=== PATIENT | male | born 1970 | race Caucasian/White ===

== ENCOUNTER 2023-10-21 12:10 | Emergency (ER) | payer OTHER ==
[~2023-10-21] VITALS: Ht 172.7 cm; Wt 86.2 kg
[2023-10-21 12:14] VITALS: BP 139/90; PULSE 63; RESP 19; TEMP 97.8; O2SAT 97
[2023-10-21] MEDS: ONDANSETRON 4 MG/2 ML VIAL IVP ONE (13:09)
[2023-10-21] MEDS: MORPHINE SULFATE 4 MG/ML SYR IVP ONE (13:11)
[2023-10-21 14:34] LABS: BASOPHILS % (AUTO) 0.4 % (0.0-2.0); EOSINOPHILS # (AUTO) 0.1 K/uL (0-0.4); EOSINOPHILS % (AUTO) 1.4 % (0.0-4.0); HEMATOCRIT 40.3 % (36-52); HEMOGLOBIN 14.1 g/dL (12.0-18.0); LYMPHOCYTES # (AUTO) 2.2 K/uL (2.0-11.5); LYMPHOCYTES % (AUTO) 25.8 % (20.5-51.1); MEAN CORPUSCULAR HEMOGLOBIN 30 pg (27-31); MEAN CORPUSCULAR HGB CONC 35 g/dL (33-37); MONOCYTES # (AUTO) 0.6 K/uL (0.8-1.0); MONOCYTES % (AUTO) 7.6 % (1.7-9.3); NEUTROPHILS # (AUTO) 5.5 K/uL (1.8-7.7); NEUTROPHILS % (AUTO) 64.8 % (42.2-75.2); PLATELET COUNT (AUTO) 229 K/uL (140-450); RED BLOOD CELL COUNT(AUTO) 4.68 MIL/uL (4.20-6.10); RED CELL DISTRIBUTION WIDTH 13.9 % (11.6-13.7); WHITE BLOOD COUNT (AUTO) 8.5 K/uL (4.8-10.8)
[2023-10-21 14:58] LABS: ALBUMIN 3.5 g/dL (3.4-5.0); ANION GAP 11.3 (8-16); CALCIUM 8.7 mg/dL (8.5-10.1); CARBON DIOXIDE 31.8 mmol/L (21-32); CREATININE 0.8 mg/dL (0.6-1.3); POTASSIUM 4.1 mmol/L (3.5-5.1); TOTAL BILIRUBIN 0.3 mg/dL (0.0-1.0); TOTAL PROTEIN, SERUM 6.6 g/dL (6.4-8.2)
[2023-10-21 17:13] VITALS: BP 141/71; PULSE 61; RESP 16; TEMP 98.6; O2SAT 100
== END 2023-10-21 17:15 | disposition short-term general hospital (02) ==
LOC: MED 12:10
DX: S32.019A Unspecified fracture of first lumbar vertebra, initial encounter for closed fracture (principal); S22.41XA Multiple fractures of ribs, right side, initial encounter for closed fracture; S30.1XXA Contusion of abdominal wall, initial encounter; R07.81 Pleurodynia; M54.50 Low back pain, unspecified; R03.0 Elevated blood-pressure reading, without diagnosis of hypertension; M43.8X4 Other specified deforming dorsopathies, thoracic region; E78.00 Pure hypercholesterolemia, unspecified; Z98.890 Other specified postprocedural states; V89.2XXA Person injured in unspecified motor-vehicle accident, traffic, initial encounter; Y93.89 Activity, other specified; Y92.488 Other paved roadways as the place of occurrence of the external cause; Y99.8 Other external cause status
CPT/HCPCS: 36415; 71250; 72131; 74176; 80053; 85025; 94010; 96374; 96375; 99285; J2270; J2405

== ENCOUNTER 2024-05-06 17:17 | Emergency (ER) | payer OTHER ==
[~2024-05-06] VITALS: Ht 172.7 cm; Wt 88.5 kg
[2024-05-06 17:34] VITALS: BP 148/94; PULSE 61; RESP 16; TEMP 97.8; O2SAT 97
[2024-05-06] MEDS: KETOROLAC 30 MG/ML VIAL IM ONE (19:02)
[2024-05-06 19:05] LABS: APPEARANCE,URINE CLEAR (CLEAR); BILIRUBIN,URINE NEGATIVE (NEGATIVE); BLOOD, URINE TRACE-I (NEGATIVE); COLOR,URINE YELLOW (YELLOW); LEUKOCYTE ESTERASE ,URINE NEGATIVE (NEGATIVE); NITRITE, URINE NEGATIVE (NEGATIVE); PROTEIN,URINE NEGATIVE (NEGATIVE); UGLUCOSE NEGATIVE (NEGATIVE); UROBILINOGEN,URINE 0.2 EU/dL (0.2 - 1)
[2024-05-06 19:14] LABS: BASOPHILS # (AUTO) 0.1 K/uL (0.00-0.22); BASOPHILS % (AUTO) 0.7 % (0.0-2.0); EOSINOPHILS # (AUTO) 0.1 K/uL (0-0.4); EOSINOPHILS % (AUTO) 1.2 % (0.0-4.0); HEMATOCRIT 40.3 % (36-52); HEMOGLOBIN 13.7 g/dL (12.0-18.0); LYMPHOCYTES # (AUTO) 2.7 K/uL (2.0-11.5); LYMPHOCYTES % (AUTO) 30.3 % (20.5-51.1); MEAN CORPUSCULAR HEMOGLOBIN 29 pg (27-31); MEAN CORPUSCULAR HGB CONC 34 g/dL (33-37); MEAN CORPUSCULAR VOLUME 86.2 fL (80-94); MONOCYTES # (AUTO) 0.7 K/uL (0.8-1.0); MONOCYTES % (AUTO) 8.1 % (1.7-9.3); NEUTROPHILS # (AUTO) 5.4 K/uL (1.8-7.7); NEUTROPHILS % (AUTO) 59.7 % (42.2-75.2); PLATELET COUNT (AUTO) 197 K/uL (140-450); RED BLOOD CELL COUNT(AUTO) 4.67 MIL/uL (4.20-6.10); RED CELL DISTRIBUTION WIDTH 13.8 % (11.6-13.7)
[2024-05-06 19:32] LABS: WBC,URINE 0-5 /HPF (0-5)
[2024-05-06 19:33] LABS: ANION GAP 10.4 (8-16); CALCIUM 8.6 mg/dL (8.5-10.1); CARBON DIOXIDE 28.7 mmol/L (21-32); CREATININE 0.9 mg/dL (0.6-1.3); POTASSIUM 4.1 mmol/L (3.5-5.1)
[2024-05-06 19:33] LABS: BACTERIA,URINE None Seen /HPF (None Seen); SQUAMOUS EPITHELIAL CELL,UR 0-3 (FEW) /LPF (0-3 (FEW))
[2024-05-06 19:39] LABS: ALBUMIN 3.5 g/dL (3.4-5.0); BILIRUBIN,DIRECT 0.1 mg/dL (0.0-0.3); TOTAL BILIRUBIN 0.5 mg/dL (0.0-1.0); TOTAL PROTEIN, SERUM 6.6 g/dL (6.4-8.2)
[2024-05-06] MEDS ORDERED: IBUP-2213 PO (21:44)
[2024-05-06] MEDS ORDERED: MAG-27 PO (21:44)
[2024-05-06] MEDS ORDERED: HYDR-2734 TP (21:44)
[2024-05-06 21:55] VITALS: BP 145/104; PULSE 56; RESP 18; TEMP 97.6; O2SAT 99
== END 2024-05-06 21:53 | disposition home or self-care (01) ==
LOC: MED 17:17
DX: R14.0 Abdominal distension (gaseous) (principal); K64.4 Residual hemorrhoidal skin tags; N43.3 Hydrocele, unspecified; R03.0 Elevated blood-pressure reading, without diagnosis of hypertension; Z98.890 Other specified postprocedural states; Z90.49 Acquired absence of other specified parts of digestive tract; Z79.899 Other long term (current) drug therapy
CPT/HCPCS: 36415; 76870; 80048; 80076; 81001; 81003; 83690; 85025; 96372; 99285; J1885; Q0092